=== PATIENT | male | born 1950 | race Caucasian/White ===

== ENCOUNTER 2016-08-04 14:25 | Outpatient (CLI) | payer OTHER ==
[2015-12-16 13:24] VITALS: BP 124/72
[2016-08-04 15:27] LABS: eGFR (African) > 60; eGFR (Non-African) > 60
== END 2016-08-04 14:26 ==
LOC: LAB 14:25
PROVIDERS: ATTEND Family Medicine
DX: E11.9 Type 2 diabetes mellitus without complications (principal); R25.2 Cramp and spasm
CPT/HCPCS: 36415; 80053; 80061; 83036; 83735

== ENCOUNTER 2016-08-06 10:32 | Outpatient (CLI) | payer OTHER ==
[2015-12-16 13:24] VITALS: BP 124/72
--- NOTE | 2016-08-06 20:10 | Diagnostic Imaging Report ---
PAOLO COULTER [facility] [address] [id number] Report Submission Date: Aug 06, 2016 4:15:13 PM CDT Patient Study Name: JOCELIN HUNTER Date: Aug 06, 2016 10:47:40 AM CDT Modality Type: US Gender: M Description: CAROTID : 50 Institution: [facility] Physician: PAOLO COULTER Ultrasound carotid Doppler History: Carotid bruit, hypertension, diabetes, dizziness, smoker Findings: Spectral Doppler sonography of the carotid and vertebral arteries is performed. On the right there is extensive calcific plaque throughout the common carotid artery, carotid bulb, and origins of the internal and external carotid arteries. Spectral broadening is present within the proximal right internal carotid artery. Antegrade right carotid and vertebral artery flow was observed. Doppler waveforms are otherwise normal. On the left there is also extensive calcific plaque in the common carotid artery , carotid bulb, and left internal carotid artery origin with spectral broadening in the proximal left internal carotid artery. Peak systolic velocity in the left external carotid artery is 260 centimeters per second. Antegrade left vertebral artery flow is observed with a normal Doppler waveform. Peak systolic velocities in the internal carotid arteries are 93 cm per second right and 149 left. Peak systolic velocities in the common carotid arteries are 137 cm per second right and 90 left. Internal to common carotid artery ratios are 0.7 right and 1.6 left. Impression: Extensive bilateral carotid atherosclerotic plaque. Using the 2003 [employer] Consensus [employer] criteria there is less than 50% right and 50 to 69% left internal carotid artery stenosis. Left external carotid artery stenosis. Antegrade vertebral artery flow. Electronically signed on Aug 06, 2016 4:15:13 PM CDT by: Jocelin LILLY
== END 2016-08-06 10:33 ==
LOC: RAD 10:32
PROVIDERS: ATTEND Family Medicine
DX: R09.89 Other specified symptoms and signs involving the circulatory and respiratory systems (principal)
CPT/HCPCS: 93880

== ENCOUNTER 2017-02-02 11:22 | Outpatient (CLI) | payer OTHER ==
[2015-12-16 13:24] VITALS: BP 124/72
[2017-02-02 12:35] LABS: eGFR (African) > 60; eGFR (Non-African) > 60
== END 2017-02-02 11:23 ==
LOC: LAB 11:22
PROVIDERS: ATTEND Family Medicine
DX: Z12.5 Encounter for screening for malignant neoplasm of prostate (principal)
CPT/HCPCS: 36415; 80053; 80061; 83036; 84153